=== PATIENT | female | born 1965 ===

== ENCOUNTER 2018-06-05 10:08 | Inpatient (IN) ==
[2018-06-05] MEDS ORDERED: Sodium Chloride 0.9% 1,000 ML PRIMARY IV ONE (10:46)
[2018-06-05 11:09] LABS: BASOPHILS # (AUTO) 0.04 10*3/UL; BASOPHILS % (AUTO) 0.3 % (0-1); EOSINOPHILS # (AUTO) 0.31 10*3/UL; EOSINOPHILS % (AUTO) 2.4 % (0-8); Hematocrit [HCT] 40.5 % (37.0-47.0); Hemoglobin [HGB] 13.9 g/dL (12.0-16.0); LYMPHOCYTES # (AUTO) 2.28 10*3/uL; MEAN CORPUSCULAR HEMOGLOBIN 30.2 PG (27-31); MEAN CORPUSCULAR HGB CONC 34.3 g/dL (33-37); MEAN CORPUSCULAR VOLUME 87.9 FL (81-99); MEAN PLATELET VOLUME 10.4 FL (7.4-12.2); MONOCYTES # (AUTO) 1.08 10*3/UL (0.3-0.8); MONOCYTES % (AUTO) 8.4 % (5-15); NEUTROPHILS # (AUTO) 9.11 10*3/UL; RED BLOOD COUNT 4.61 10^6/uL (4.20-5.40)
[2018-06-05 11:10] LABS: PLATELET MORPHOLOGY COMMENT NORMAL MORPHOLOGY (NORM); RBC MORPHOLOGY COMMENT NORMAL MORPHOLOGY (NORM); WBC MORPHOLOGY COMMENT NORMAL MORPHOLOGY (NORM)
[2018-06-05 11:17] LABS: BLOOD UREA NITROGEN 18 mg/dL (7-22); LIPASE 69 IU/L (23-300); SERUM ALBUMIN 4.5 g/dL (3.5-4.8)
[2018-06-05 12:27] LABS: BILIRUBIN,URINE NEGATIVE (NEG); CLARITY,URINE CLEAR (CLEAR); COLOR,URINE YELLOW (Y); GLUCOSE, URINE (UA) NEGATIVE (NEG); OCCULT BLOOD,URINE MODERATE (NEG); PROTEIN,URINE NEGATIVE (NEG); UROBILINOGEN,URINE 0.2 EU/dL (0.2)
--- NOTE | 2018-06-05 12:39 | DI ---
EXAM: CT Abdomen and Pelvis With Intravenous Contrast CLINICAL HISTORY: Ongoing RLQ abdominal pain x4 days. 75 ml Isovue 300 IV contrast, 400 images, no priors. : TECHNIQUE: Axial computed tomography images of the abdomen and pelvis with intravenous contrast. COMPARISON: No relevant prior studies available. FINDINGS: Lung bases: Unremarkable. No mass. No consolidation. ABDOMEN: Liver: Fatty enlarged liver. 9 mm low-density lesion right lobe of the liver. Gallbladder and bile ducts: Unremarkable. No calcified stones. No ductal dilation. Pancreas: Unremarkable. No mass. No ductal dilation. Spleen: Unremarkable. No splenomegaly. Adrenals: Unremarkable. No mass. Kidneys and ureters: 18 mm left renal cyst. No hydronephrosis. Stomach and bowel: Duodenal diverticula. No obstruction. No mucosal thickening. PELVIS: Appendix: 12 mm fluid dilated appendix with thickened enhancing wall and surrounding inflammatory changes consistent with acute appendicitis. 6 mm appendicolith in the origin of the appendix and 7 mm within the mid appendix. Air in the tip of the appendix and possibly in the wall versus extraluminal, worrisome for necrosis and/or focal perforation. Small free fluid. No abscess. Bladder: Unremarkable. No mass. Reproductive: Uterus and adnexa are unremarkable. ABDOMEN and PELVIS: Intraperitoneal space: See above. Bones/joints: No acute fracture. No dislocation. Soft tissues: Unremarkable. Vasculature: Unremarkable. No abdominal aortic aneurysm. Lymph nodes: Small to borderline right lower abdominal mesenteric lymph nodes. Small to borderline peripancreatic lymph nodes. IMPRESSION: 1. 12 mm fluid dilated appendix with thickened enhancing wall and surrounding inflammatory changes consistent with acute appendicitis. 6 mm appendicolith in the origin of the appendix and 7 mm within the mid appendix. Air in the tip of the appendix and possibly in the wall versus extraluminal, worrisome for necrosis and/or focal perforation. Small free fluid. No abscess. 2. Fatty enlarged liver. 3. Duodenal diverticula. [employer] 06/05/18 12:42 Call Doctor Regarding Appendicitis, called Dr. Rene Mejias on 06/05 12:41 (-07:00)
[2018-06-05 13:04] LABS: BACTERIA,URINE MODERATE; SQUAMOUS EPITHELIAL CELL,UR FEW; URINE SAMPLE TYPE CLEAN CATCH URINE; WBC,URINE 20-30
[2018-06-05] MEDS ORDERED: ONDANSETRON 4 MG/2 ML VIAL IVP ONE (14:19)
[2018-06-05] MEDS ORDERED: DEXAMETHASONE PF 10 MG/1 ML VIAL IVP ONE (14:20)
--- NOTE | 2018-06-05 14:27 | CONSULT ---
Consult Note - Consult Consult Date: 06/05/18 Reason for Consult: PreOp Consulation : General Surgery Requesting Physician: Dr. Mejias Primary Care Provider: NONE NONE - History of Present Illness History of Present Illness: The patient is a 52-year-old female with a four-day history of lower abdominal pain. She had nausea associated with the pain. She has had no vomiting, diarrhea, fever, or chills. She thought she might have a bladder infection. She started some antibiotics she had on hand for such a reason that they helped not at all. She was not having dysuria. The pain has been progressive. It has localized to her right lower quadrant. She spent the last 3 days in bed and tried to go to work today. She ate some breakfast and had more pain and so presented to the open access clinic. She was transferred to the emergency room. Her white count is elevated at 12,800. CT scan shows a dilated appendix which is in a retrocecal location. It is up to 12 mm in size. There were fecaliths and air present. There is inflammatory stranding. This is consistent with acute appendicitis with possible perforation. I am asked to see her in consultation. Review of Systems - Gastrointestinal Gastrointestinal / Abdominal: REPORTS: Nausea, Abdominal Pain (The right lower quadrant), Poor Appetite, See HPI. DENIES: Negative System Review, Vomiting, Diarrhea, Constipation, Bloody Stool, Heartburn, Regurgitation, Bloating, Lactose Intolerance, Melena, Bright Red Blood per Rectum, Other Past Medical History Medical History: History of urinary tract infections. History of pyelonephritis. Right shoulder arthropathy. Hypertension. Surgical History: Surgery on her little finger. Tobacco Use: Light Tobacco Smoker In the Past 12 Months, Have Used or Abuse Any of the Following Substance: None Alcohol Use: None Medication / Allergies Home Medications: Home Medications 3 Medication Instructions Recorded Confirmed Type Cetirizine HCl 06/05/18 History Hydrochlorothiazide [HydroDiuril 06/05/18 06/05/18 History Tab] Meloxicam 06/05/18 History azithromycin 250 mg tablet 250 mg PO QDAY 06/05/18 06/05/18 History Allergies/Adverse Reactions: Allergies 3 Allergy/AdvReac Type Severity Reaction Status Date / Time Penicillins Allergy Severe HIVES Verified 06/05/18 10:26 Results - Labs CBC and BMP: 06/05/18 10:46 06/05/18 10:46 - Imaging Status: Image Reviewed by Me, Report Reviewed by Me Exam - Vitals Vital Signs: Vital Signs Temperature 96.6 F Temperature Source Temporal Artery Scan Pulse Rate [Bilateral Radial] 102 Respiratory Rate 18 Blood Pressure [Left Arm] 132/91 Pulse Ox 98 Oxygen Delivery Method Room Air Height 5 ft 4 in Weight 160 lb - General General Appearance: No Acute Distress, Cooperative - Respiratory Respiratory Exam: POSITIVE: Clear to Auscultation - Bilaterally, Breathing Non Labored - Cardiovascular Cardiovascular Exam: POSITIVE: RRR, No Murmur - GI/Abdominal GI/Abdominal Exam: POSITIVE: Normal Bowel Sounds, Guarding, Rebound Additional GI/Abdominal Exam Details: Focal right lower quadrant abdominal pain with guarding and rebound. Positive Rovsing's. Abdomen is moderately obese. - Rectal Rectal Exam: POSITIVE: Deferred - Neurological Neurological Exam: POSITIVE: Alert, Oriented x 3 - Psychiatric Psychiatric Exam: POSITIVE: Normal Affect, Normal Mood Assessment and Plan - Patient Problems (1) Acute appendicitis Current Visit: Yes Status: Acute Priority: High Onset Date: ~06/02/18 Comment: CT scan and exam consistent with acute appendicitis. Possible perforation. Proceed with open appendectomy as the appendix is in a retrocecal location. The procedure has been discussed with the patient in complete yet simple terms including benefits, risks, and alternatives. All questions have been answered. Informed consent has been obtained. Code(s): K35.80 - Unspecified acute appendicitis Qualifiers: Acute appendicitis type: with localized peritonitis
[2018-06-05] MEDS ORDERED: Lactated Ringers 1,000 ML PRIMARY IV SCH ×2 (14:30)
[2018-06-05] MEDS ORDERED: Nasal Sanitizer POPSWAB ampule 3 AMP (Nozin) PREOP DOSE ENOS SCH ×2 (14:30)
[2018-06-05] MEDS ORDERED: Ertapenem Inj 1 GM in Sodium Chloride 0.9% 100 ML IV SCH ×4 (14:30)
[2018-06-05] MEDS ORDERED: LIDOCAINE MPF 2% - 5 ML (20 MG/1 ML) ONE (14:31)
[2018-06-05] MEDS ORDERED: fentaNYL Inj 250 MCG/5 ML VIAL ONE (14:31)
[2018-06-05] MEDS ORDERED: PROPOFOL 10 MG/1 ML (200 MG/20 ML) VIAL IV ONE (14:31)
[2018-06-05] MEDS ORDERED: MIDAZOLAM 5 MG/1 ML ONE (14:31)
[2018-06-05] MEDS ORDERED: ROCURONIUM 10 MG/1 ML - 5 ML VIAL IVP ONE (14:32)
[2018-06-05] MEDS ORDERED: ERTAPENEM 1 GM VIAL ONE (14:33)
[2018-06-05] MEDS ORDERED: Sodium Chloride 0.9% 100 ML IV ONE (14:33)
[2018-06-05] MEDS ORDERED: KETAMINE 100 MG/1 ML - 5 ML ONE (14:37)
[2018-06-05] MEDS ORDERED: Acetaminophen 1000mg Inj 1,000 MG/100 ML VIAL IV ONE (14:39)
[2018-06-05] MEDS ORDERED: BUPIVACAINE 0.5% W/ EPI - 10 ML VIAL ONE (15:06)
[2018-06-05] MEDS ORDERED: Lactated Ringers 1,000 ML PRIMARY IV ONE (15:17)
[2018-06-05] MEDS ORDERED: KETOROLAC 30 MG/1 ML VIAL ONE (15:19)
[2018-06-05] MEDS ORDERED: SUGAMMADEX SODIUM 200 MG/2 ML VIAL IV ONE (15:40)
[2018-06-05] MEDS ORDERED: HYDROmorphone 2 MG/1 ML ONE ×2 (15:54→16:47)
--- NOTE | 2018-06-05 16:23 | GEN.OPNOTE ---
Operative Note Surgery Date: 06/05/18 Preoperative Diagnosis: Acute appendicitis with possible rupture. Postoperative Diagnosis: Acute appendicitis with perforation and gangrene. Procedure: Open appendectomy. Surgeon: Johann Ramirez MD Anesthesia Provider: Rusty Park CRNA Anesthesia Type: General Estimated Blood Loss (mL): 20 Fluids: 1500 mL of crystalloid. 1 g of IV Invanz prior to the start of the procedure. 1 g of IV Tylenol towards the end of the procedure. 60 mg of IM Toradol at the end of the procedure. Pathology: Specimen to pathology. Indications: Exam and CT scan consistent with acute appendicitis with possible rupture. Findings: Ruptured retrocecal appendix with large phlegmon and surrounding inflammatory changes. The appendix was gangrenous and obviously perforated. There is not a lot of free purulent material in the abdomen it was well-contained retrocecally. Complications: None. Operative Summary: The patient was taken to the operating suite and placed on the operating table in a supine position. General anesthetic was administered per the [place]. The abdomen was prepped and draped in a sterile fashion. The usual surgical timeout was performed. An incision was made over McBurney's point and carried down to the external oblique with electrocautery. The external oblique was split along the course of its fibers with electrocautery. The abdominal wall was transected using a muscle-splitting technique. The peritoneum was elevated and incised. There was no purulent fluid. An Stefan retractor was placed. The initial irrigation and suctioning were performed. The cecum and base of the appendix were delivered through the wound. There was a large retrocecal phlegmon. I had to remove the Stefan wound retractor and extending the incision towards the midline. The Stefan retractor was replaced. This allowed delivery of the cecum and phlegmon and retrocecal appendix through the wound. The appendix was gangrenous and perforated. It was bluntly dissected down from the surrounding phlegmon. The mesoappendix was taken down by serially clamping dividing and ligating the mesoappendix with 2-0 Vicryl sutures. This was done until the appendix was cleared to its base. The inflammatory process extended all the way up to the base of the appendix and onto the base of the cecum. I used a TA 30 stapling device and placed it across the base of the appendix and part of the cecum. It was closed and fired. The appendix was amputated. The staple line was inverted into the cecum with a running Lembert suture of 2-0 Vicryl. Hemostasis was assured. Extensive irrigation was performed. We used 3 L of irrigation until all return was clear. The cecum was returned to a relative anatomic position and covered with omentum. The peritoneum was closed with 2-0 Vicryl. The muscle layers were all closed with 0 Vicryl. The wound was extensively irrigated. Final irrigation was one quarter percent Marcaine with epinephrine which was allowed to sit in the wound for several minutes. Cody's fascia was closed with 2-0 Vicryl. The skin was loosely reapproximated with surgical titus followed by an appropriate dressing. The patient tolerated all aspects of the procedure well without complication. She was taken to the recovery room in stable condition. All counts were correct. Procedure Codes - Surgical Procedures Primary Surgical Procedure: [id number] : Appendectomy, Rupture
[2018-06-05] MEDS ORDERED: LIDOCAINE W/ SODIUM BICARB 0.5 ML SYR SUBD PRN (16:24)
[2018-06-05] MEDS ORDERED: HYDROmorphone 2 MG/1 ML IVP PRN (16:24)
[2018-06-05] MEDS ORDERED: Prochlorperazine Edisylate Inj 10mg/2ml vial IVP PRN (16:24)
--- NOTE | 2018-06-05 16:26 | CRNA.PROGR ---
Anesthesia Recovery Phase I - Post Anesthesia Evaluation Patient's Condition on Arrival in Phase I: Stable Pain Level: 3
--- NOTE | 2018-06-05 16:26 | CRNA.PROGR ---
Anesthesia Time - Procedure/Recovery Time Start Date: 06/05/18 End Date: 06/05/18 Anesthesia : Time In: 14:45 Anesthesia : Time Out: 16:20 Anesthesia : Total Time: 95 - Total Anesthesia Time Total Anesthesia Time (minutes): 95 - Other Weight: 113.398 kg Height: 5 ft 8 in Body Mass Index (BMI): 38.0 Physical Status: P2 Anesthesia Type: General Anesthesia : ET
[2018-06-05] MEDS ORDERED: Prochlorperazine Edisylate Inj 10mg/2ml vial ONE (17:13)
[2018-06-05] MEDS ORDERED: MORPHINE SULFATE 2 MG/1 ML IVP PRN (17:24)
[2018-06-05] MEDS: ONDANSETRON 4 MG/2 ML VIAL IVP PRN (18:25)
[2018-06-05] MEDS: oxyCODONE-ACETAMINOPHEN 5-325 TAB PO PRN (18:59)
[2018-06-06] MEDS: DOCUSATE 100 MG CAPSULE PO SCH ×3 (00:38→21:34)
[2018-06-06] MEDS: KETOROLAC 30 MG/1 ML VIAL IVP SCH ×4 (00:54→18:24)
[2018-06-06] MEDS: oxyCODONE-ACETAMINOPHEN 5-325 TAB PO PRN ×5 (00:57→18:29)
--- NOTE | 2018-06-06 04:09 | PDOC ---
Abdomen/Flank HPI - General Chief Complaint: Abdomen Pain Stated Complaint: RUQ ABDOMINAL PAIN Date Seen by Provider: 06/05/18 Time Seen by Provider: 10:35 Source: POSITIVE: Patient Exam Limitations: POSITIVE: No limitations Nurse's Notes Reviewed & Considered: Yes - History of Present Illness Initial Comments: The patient is a 52 year old female. She presents to the emergency room with a 3 to four-day history of abdominal pain, mostly right sided. She states that at the onset she had "chills like I was getting the flu". She has no history of abdominal surgery. She has had some urinary tract infections in the past. Patient initially presented to the clinic with the above complaints, and was sent from the clinic to the emergency room. Patient states she last ate around 7 AM. No diarrhea, dysuria, melena, hematochezia, hematemesis or hematuria. Body Location Affected: REPORTS: Abdomen Timing: REPORTS: Gradual, Getting Worse Duration: >24 hours (4 days, per patient) Severity: Moderate Quality: REPORTS: "Pain" Abdominal Pain Onset Location: REPORTS: RUQ, RLQ, Periumbilical Abdominal Pain Radiation: REPORTS: No radiation Context: REPORTS: None Modifying Factors: improves with: Nothing Associated Symptoms: REPORTS: Nausea Similar Symptoms Previously: No Recent Care Received: REPORTS: Denies Any Prior Injuries Related to Current Complaint?: No - Patient Home Medications Home Medications: Home Medications Cetirizine HCl 06/05/18 Hydrochlorothiazide [HydroDiuril Tab] 06/05/18 Meloxicam 06/05/18 azithromycin 250 mg tablet 250 mg PO QDAY 06/05/18 - Patient Allergies Allergies/Adverse Reactions: Allergies 3 Allergy/AdvReac Type Severity Reaction Status Date / Time Penicillins Allergy Severe HIVES Verified 06/05/18 10:26 Past Medical History - heen HEENT History: Denies History Cardiovascular History: Denies History Respiratory History: Asthma Gastrointestinal History: Denies History Genitourinary History: Recurrent UTI, Other (please comment) Additional Genitourinary History: PT COMPLAINS OF A LONG HX OF BLADDER, KIDNEY, AND URINARY TRACT INFECTION. Endocrine History: Denies History Musculoskeletal History: Arthritis, Joint Pain Neurological History: Denies History Blood Disorders: Denies History Psychiatric History: Denies History Female Reproductive History: Denies History LMP: 2008 Obstetrical History: Denies History Cancer History: Denies History In Past Year Been Physically Harmed or Verbally Threatened: No History of MDRO: No Tobacco Use: Former Smoker Type of alcohol normally used: Beer, Hard Liquor, Wine In the Past 12 Months, Have Used or Abuse Any Substance: None Previous Surgical History: No Family History of Malignant Hyperthermia: No Significant Family History: Asthma, Heart disease, Cancer, Hypertension Past Medical History Reviewed: Reviewed - No Changes ROS - Limitations ROS Limitations: No Limitations Constitution: REPORTS: Denies Symptoms Cardiovascular: REPORTS: Denies Cardiac Symptoms Respiratory: REPORTS: Denies Resp Symptoms Neurological: REPORTS: Denies Neuro Symptoms Gastrointestinal: REPORTS: Abdominal Pain, Nausea Endocrine: REPORTS: Denies Symptoms Musculoskeletal: REPORTS: Denies MS Symptoms Genitourinary: REPORTS: Denies Symptoms Eyes: REPORTS: Denies Symptoms ENT: REPORTS: Denies Symptoms Skin: REPORTS: Denies Skin Symptoms Lympathic: REPORTS: Denies Lympathic Symptoms Immunologic: POSITIVE: Denies Symptoms Psychiatric: POSITIVE: Denies Psych Symptoms Abdominal/Flank Pain PE - General Appearance General Appearance: POSITIVE: Alert, Cooperative, No Acute Distress, No Evidence of Trauma - HEENT HEENT: POSITIVE: Head Inspection Nml, Eyes Inspection Nml, Ears Inspection Nml, Nose Inspection Nml, Oral/Dental Inspect. Nml, Pharynx Inspect. Nml, PERRL, EOMI - Neck Neck: POSITIVE: Normal Inspection, No Apparent Injury - Respiratory Respiratory: POSITIVE: No Respiratory Distress, Breath Sounds Normal, Chest Non- Tender - Cardiovascular Cardiovascular: POSITIVE: Regular Rate and Rhythm, Heart Sounds Normal, Equal Pulses, Strong Pulses Peripheral Pulses: Radial (R): 2+, Radial (L): 2+ - Chest Chest: POSITIVE: Non Tender - Abdomen Abdomen: Soft: (All Quadrants), Normal Bowel Sounds: (All Quadrants), Denies Tenderness: (LLQ), (LUQ), No Splenomegaly: (All Quadrants), No Hepatomegaly: ( All Quadrants), No Guarding: (All Quadrants), No Rebound: (All Quadrants), No Palpable Pulse: (All Quadrants), No Palpabale Mass: (All Quadrants), No Distention: (All Quadrants), No Rigidity: (All Quadrants), Tenderness Noted: ( RUQ), (RLQ) Additional Abdominal Details: Abdominal examination shows bowel sounds to be present. Patient expresses pain on palpation over the right half of the abdomen, especially the right lower quadrant. No masses, organomegaly or rebound. - Back Back: POSITIVE: Normal Inspection. 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 There are appendicoliths identified and probably some air in the tip of the appendix and possibly in the wall of the appendix. Lab Results Reviewed by Me: Yes CBC and BMP: 06/05/18 10:46 06/05/18 10:46 Lab Results:: Laboratory Results 3 06/05/18 06/05/18 06/05/18 10:46 10:46 10:46 WBC 12.83 H RBC 4.61 Hgb 13.9 Hct 40.5 MCV 87.9 MCH 30.2 MCHC 34.3 RDW Std Deviation 43.0 RDW Coeff of Denis 13.5 Plt Count 192 MPV 10.4 Immature Gran % (Auto) 0.1 Neut % (Auto) 71.0 Lymph % (Auto) 17.8 [place] % (Auto) 8.4 Eos % (Auto) 2.4 Baso % (Auto) 0.3 Immature Gran # (Auto) 0.01 Neut # (Auto) 9.11 Lymph # (Auto) 2.28 [place] # (Auto) 1.08 H Eos # (Auto) 0.31 Baso # (Auto) 0.04 WBC Morphology Comment Normal morphology Plt Morphology Comment Normal morphology RBC Morph Comment Normal morphology Sodium 137 Potassium 3.3 L Chloride 101 Carbon Dioxide 26 Anion Gap 10 BUN 18 Creatinine 0.9 Estimated GFR > 60 BUN/Creatinine Ratio 20.00 Glucose 93 Calculated Osmolality 285.0 Calcium 9.2 Total Bilirubin 0.7 AST 23 ALT 24 Alkaline Phosphatase 87 Total Protein 8.1 H Albumin 4.5 Globulin 3.6 Albumin/Globulin Ratio 1.20 L Amylase 66 Lipase 69 Ur Collection Type Clean catch urine Urine Color Yellow Urine Clarity Clear Urine pH 7.0 Ur Specific [place] 1.010 Urine Protein Negative Urine Glucose (UA) Negative Urine Ketones Negative Urine Occult Blood Moderate H Urine Nitrate Negative Urine Bilirubin Negative Urine Urobilinogen 0.2 Ur Leukocyte Esterase Trace Urine RBC 5-10 Urine WBC 20-30 Ur Squamous Epith Cells Few Ur Renal Epithelial Cell None Urine Crystals None Urine Bacteria Moderate H Urine Casts None Urine Mucus None Urine Trichomonas None Urine Yeast None Ur Culture Indicated? Culture set - Patient's Progress Pain Medication Addressed: POSITIVE: Patient Refused School/Work Release Addressed: POSITIVE: Not Applicable Re-examine Time: 12:50 Re-Examine Comment: Patient advised that she has appendicitis. Dr. Ramirez, surgeon, contacted who will come into the emergency room to further evaluate and treat. Patient kept NPO. Hydrated with normal saline. Status: POSITIVE: Unchanged, Re-Examined - Consult Consult (If Yes, Name of Consulting MD & Time Called): Yes (Dr. Ramirez, surgery, [id number]) Consulting MD will see pt:: POSITIVE: In ED Counseled: POSITIVE: Patient, RE: Lab Results, RE: Radiology Results, RE: DX, RE : Need for F/U Patient Care Time - Estimated PCT Patient Care Time (In Minutes): 50 Vital Signs - VS Reviewed Vital Signs Reviewed: Yes Discharge Clinical Impression: Appendicitis Discharge Disposition: Other (Care transferred to Dr. Ramirez, surgeon, who will come to the emergency room to further evaluate and treat) Condition: Fair Care Transferred To: Dr. Ramirez, surgeon, [id number] Date Decision to Admit to Inpatient: 06/05/18 Time Decision to Admit to Inpatient: 12:40
[2018-06-06 05:14] LABS: BASOPHILS # (AUTO) 0.01 10*3/UL; BASOPHILS % (AUTO) 0.1 % (0-1); EOSINOPHILS # (AUTO) 0 10*3/UL; EOSINOPHILS % (AUTO) 0 % (0-8); Hematocrit [HCT] 35.3 % (37.0-47.0); Hemoglobin [HGB] 11.9 g/dL (12.0-16.0); LYMPHOCYTES # (AUTO) 0.93 10*3/uL; MEAN CORPUSCULAR HEMOGLOBIN 30.1 PG (27-31); MEAN CORPUSCULAR HGB CONC 33.7 g/dL (33-37); MEAN CORPUSCULAR VOLUME 89.4 FL (81-99); MEAN PLATELET VOLUME 10.6 FL (7.4-12.2); MONOCYTES # (AUTO) 0.95 10*3/UL (0.3-0.8); MONOCYTES % (AUTO) 6.5 % (5-15); NEUTROPHILS # (AUTO) 12.66 10*3/UL; NEUTROPHILS % (AUTO) 86.8 % (50-80); RED BLOOD COUNT 3.95 10^6/uL (4.20-5.40)
[2018-06-06 05:15] LABS: PLATELET MORPHOLOGY COMMENT NORMAL MORPHOLOGY (NORM); RBC MORPHOLOGY COMMENT NORMAL MORPHOLOGY (NORM); WBC MORPHOLOGY COMMENT NORMAL MORPHOLOGY (NORM)
[2018-06-06 05:22] LABS: BLOOD UREA NITROGEN 19 mg/dL (7-22); BUN/CREATININE RATIO 23.75 (6-20)
[2018-06-06] MEDS: ONDANSETRON 4 MG/2 ML VIAL IVP PRN (11:08)
--- NOTE | 2018-06-06 11:40 | PDOC(PROG) ---
Subjective Post Op Day: 1 Pain Management: PO [place] Catheter: No Flatus: Yes Diet: Clear Liquids Ambulating: Yes Date of Service: 06/06/18 Time of Service: 11:30 Interval History: Overall doing well. He is having incisional discomfort. Worse when she is walking. I've talked to the nurses about her pain management. We can make her more comfortable easily. She is tolerating some clear liquids. Mild nausea. No vomiting. She is passing gas. No bowel movement. I discussed the surgical findings with the patient and her . She understands the importance of ambulation and incentive spirometry. Objective : Data - Labs CBC and BMP: 06/06/18 04:47 06/06/18 04:47 - Vital Signs Vital Signs and I&O: Vital Signs - Last Taken Temperature 97.2 F 06/06/18 06:53 Pulse Rate 69 06/06/18 07:00 Respiratory Rate 16 06/06/18 07:00 Blood Pressure 101/58 06/06/18 08:30 Pulse Ox 92 06/06/18 06:53 Intake and Output (24hr x 4 totals) 06/04/18 06/05/18 06/06/18 06/07/18 05:59 05:59 05:59 05:59 Intake Total 4270 / 4270 861 / 861 Output Total 520 / 520 75 / 75 Balance 3750 / 3750 786 / 786 Objective : Exam - General General Appearance: No Acute Distress, Cooperative - Respiratory Respiratory Exam: Clear to Auscultation - Bilaterally, Breathing Non Labored - Cardiovascular Cardiovascular Exam: RRR, No Murmur - GI/Abdominal GI/Abdominal Exam: Normal Bowel Sounds, Soft Additional GI/Abdominal Exam Details: The dressing is clean, dry, and intact. Incisional tenderness on palpation. - Neurological Neurological Exam: Alert, Oriented x 3 - Psychiatric Psychiatric Exam: Normal Affect, Normal Mood Assessment and Plan - Patient Problems (1) Status post appendectomy Current Visit: Yes Status: Acute Priority: High Onset Date: 06/05/18 Comment: Doing well. Usual postoperative course. Seems to be doing well. Her white count is higher today which is not unexpected. Continue antibiotics. Liberalize diet as tolerated. Check a.m. labs. Again I discussed all findings with the patient and her . They are appreciative of her care. She is doing well. Code(s): Z90.49 - Acquired absence of other specified parts of digestive tract (2) Acute appendicitis with rupture Current Visit: Yes Status: Acute Priority: Low Onset Date: ~06/01/18 Comment: Status post appendectomy. See above. Code(s): K35.32 - Acute appendicitis with perforation and localized peritonitis , without abscess
[2018-06-06] MEDS: Ertapenem Inj 1 GM in Sodium Chloride 0.9% 100 ML IV SCH (15:29)
[2018-06-07] MEDS: oxyCODONE-ACETAMINOPHEN 5-325 TAB PO PRN ×4 (00:28→13:38)
[2018-06-07] MEDS: KETOROLAC 30 MG/1 ML VIAL IVP SCH ×4 (00:28→17:30)
[2018-06-07 05:13] LABS: BASOPHILS # (AUTO) 0.02 10*3/UL; BASOPHILS % (AUTO) 0.2 % (0-1); EOSINOPHILS # (AUTO) 0.19 10*3/UL; EOSINOPHILS % (AUTO) 1.6 % (0-8); Hematocrit [HCT] 31.7 % (37.0-47.0); Hemoglobin [HGB] 10.2 g/dL (12.0-16.0); LYMPHOCYTES # (AUTO) 1.99 10*3/uL; MEAN CORPUSCULAR HEMOGLOBIN 29.5 PG (27-31); MEAN CORPUSCULAR HGB CONC 32.2 g/dL (33-37); MEAN CORPUSCULAR VOLUME 91.6 FL (81-99); MEAN PLATELET VOLUME 11.3 FL (7.4-12.2); MONOCYTES # (AUTO) 0.84 10*3/UL (0.3-0.8); MONOCYTES % (AUTO) 7.1 % (5-15); NEUTROPHILS # (AUTO) 8.84 10*3/UL; NEUTROPHILS % (AUTO) 74.2 % (50-80); RED BLOOD COUNT 3.46 10^6/uL (4.20-5.40)
[2018-06-07 05:26] LABS: PLATELET MORPHOLOGY COMMENT NORMAL MORPHOLOGY (NORM); RBC MORPHOLOGY COMMENT NORMAL MORPHOLOGY (NORM); WBC MORPHOLOGY COMMENT NORMAL MORPHOLOGY (NORM)
--- NOTE | 2018-06-07 07:08 | CRNA.PROGR ---
Anesthesia Note - Progress Notes Anesthesia Progress Note: Post OP Anesthesia Note Pt is sitting up at the bed side. She has been up ambulating, up to restroom. She is tolerating a regular diet. She states that her pain is well under control. She denies any residual problems of a general anesthetic. Current VS are stable. Vital Signs - Last Taken Temperature 98.7 F 06/07/18 06:29 Pulse Rate 69 06/07/18 06:29 Respiratory Rate 18 06/07/18 06:29 Blood Pressure 102/64 06/07/18 06:29 Pulse Ox 93 06/07/18 06:29
[2018-06-07] MEDS: DOCUSATE 100 MG CAPSULE PO SCH ×2 (09:11→20:16)
[2018-06-07] MEDS: ONDANSETRON 4 MG/2 ML VIAL IVP PRN (12:24)
--- NOTE | 2018-06-07 14:15 | PDOC(PROG) ---
Subjective Post Op Day: 2 Pain Management: PO [place] Catheter: No Flatus: No Diet: Regular Ambulating: Yes Date of Service: 06/07/18 Time of Service: 14:00 Interval History: Overall doing well. Tolerating some regular food. Has some flatus yesterday but none today. No bowel movement. Feels a little lightheaded and dizzy when she gets up. Does not feel ready to go home yet. She moves about 2-1/2 hours from here. White count is still slightly elevated. Patient had a large inflammatory mass in her right lower quadrant. I think she would benefit from another day in the hospital. We have discussed all the above in detail. Objective : Data - Labs CBC and BMP: 06/07/18 04:10 06/07/18 04:10 - Vital Signs Vital Signs and I&O: Vital Signs - Last Taken Temperature 97.8 F 06/07/18 11:09 Pulse Rate 69 06/07/18 11:09 Respiratory Rate 17 06/07/18 11:09 Blood Pressure 111/66 06/07/18 11:09 Pulse Ox 95 06/07/18 11:09 Intake and Output (24hr x 4 totals) 06/05/18 06/06/18 06/07/18 06/08/18 05:59 05:59 05:59 05:59 Intake Total 4270 / 4270 3423.4 / 3423.4 1030 / 1030 Output Total 520 / 520 425 / 425 150 / 150 Balance 3750 / 3750 2998.4 / 2998.4 880 / 880 Objective : Exam - General General Appearance: Cooperative, Mild Distress - Respiratory Respiratory Exam: Clear to Auscultation - Bilaterally, Breathing Non Labored - Cardiovascular Cardiovascular Exam: RRR, No Murmur - GI/Abdominal GI/Abdominal Exam: Normal Bowel Sounds, Soft Additional GI/Abdominal Exam Details: Obese. Right lower quadrant incisional tenderness. The incision looks good. It was redressed. - Neurological Neurological Exam: Alert, Oriented x 3 - Psychiatric Psychiatric Exam: Normal Affect, Normal Mood Assessment and Plan - Patient Problems (1) Status post appendectomy Current Visit: Yes Status: Acute Priority: High Onset Date: 06/05/18 Comment: I have discussed everything in detail with the patient. She understands Dr. Pérez will be following her until discharge as I will be out on medical leave. She is doing very well. Patient had a large phlegmon in the retroperitoneal area. White count still slightly elevated. Still dizzy when ambulating. I think she would benefit from another day in the hospital. Continue current course. Should complete a 7-10 day course of antibiotics at discharge. Code(s): Z90.49 - Acquired absence of other specified parts of digestive tract (2) Acute appendicitis with rupture Current Visit: Yes Status: Acute Priority: Low Onset Date: ~06/01/18 Comment: Status post appendectomy. Code(s): K35.32 - Acute appendicitis with perforation and localized peritonitis , without abscess
[2018-06-07] MEDS: Ertapenem Inj 1 GM in Sodium Chloride 0.9% 100 ML IV SCH (15:36)
[2018-06-07] MEDS: oxyCODONE/APAP 7.5/325 Tab 1 TAB TAB PO PRN (18:56)
[2018-06-08] MEDS: oxyCODONE/APAP 7.5/325 Tab 1 TAB TAB PO PRN ×3 (00:09→09:13)
[2018-06-08] MEDS: KETOROLAC 30 MG/1 ML VIAL IVP SCH ×2 (00:09→05:50)
[2018-06-08 07:16] VITALS: BP 125/73; RESP 16; TEMP 96.8; O2SAT 92
[2018-06-08 07:52] LABS: Hematocrit [HCT] 32.4 % (37.0-47.0); Hemoglobin [HGB] 10.6 g/dL (12.0-16.0); MEAN CORPUSCULAR HGB CONC 32.7 g/dL (33-37); MEAN CORPUSCULAR VOLUME 91.8 FL (81-99); MEAN PLATELET VOLUME 10.1 FL (7.4-12.2); RED BLOOD COUNT 3.53 10^6/uL (4.20-5.40)
[2018-06-08 07:56] LABS: BLOOD UREA NITROGEN 19 mg/dL (7-22); BUN/CREATININE RATIO 23.75 (6-20)
[2018-06-08 08:25] LABS: PLATELET MORPHOLOGY COMMENT NORMAL MORPHOLOGY (NORM); RBC MORPHOLOGY COMMENT NORMAL MORPHOLOGY (NORM); WBC MORPHOLOGY COMMENT NORMAL MORPHOLOGY (NORM)
[2018-06-08 08:26] LABS: BAND NEUTROPHILS % 0 % (0-10); BASOPHILS % (MANUAL) 0 % (0-1); EOSINOPHILS % (MANUAL) 0 % (0-8); MONOCYTES % (MANUAL) 4 % (0-12); NEUTROPHILS % (MANUAL) 68 % (50-80)
[2018-06-08] MEDS ORDERED: LEVOFLOXACIN 500 MG TABLET PO SCH (09:00)
[2018-06-08] MEDS ORDERED: metroNIDAZOLE Tab 500 MG TAB PO SCH (09:00)
[2018-06-08] MEDS: DOCUSATE 100 MG CAPSULE PO SCH (09:12)
--- NOTE | 2018-06-17 09:11 | DCSUMMARY ---
Discharge Summary Admit Date: 06/06/18 Discharge Date: 06/08/18 Admitting Diagnosis: acute appendicitis Discharge Diagnosis: Acute appendicitis Primary Surgery and Date: Appendectomy on the Hospital Course: Patient is admitted for acute appendicitis. Dr. Ramirez did open appendectomy. She had a retrocecal ruptured appendix. She did very well. She is at the point she be discharged on antibiotics ciprofloxacin and Flagyl for 7 days. Condition on discharge was stable and improved Exam - Vitals Vital Signs: Vital Signs Temperature 96.8 F Temperature Source Temporal Artery Scan Pulse Rate [Pulse Oximeter] 70 Pulse Rate [Bilateral Radial] 102 Pulse Rate 89 Respiratory Rate 16 Blood Pressure [Right Arm] 125/73 Blood Pressure [Left Arm] 91/63 Blood Pressure 106/81 Pulse Ox 92 Oxygen Flow Rate 1 Oxygen Delivery Method Room Air Height 5 ft 8 in Weight 255 lb 11.2 oz - General General Appearance: Cooperative - GI/Abdominal GI/Abdominal Exam: POSITIVE: Non Tender, Non Distended
== END 2018-06-08 09:36 | disposition home or self-care (01) | DRG 343 ==
LOC: ER 10:08 → OR 14:16 → MED/SURG 16:27
PROVIDERS: ADMIT Surgery; ATTEND Surgery